=== PATIENT | male | born 1975 | race Caucasian/White ===

== ENCOUNTER 2017-06-24 18:51 | Inpatient (IN) | payer OTHER ==
[~2017-06-24] VITALS: Ht 182.9 cm; Wt 154.4 kg
[2017-06-24] MEDS ORDERED: NITROGLYCERIN OINT 1 GM PACKET. ONE (19:20)
[2017-06-24 19:30] LABS: BASO # 0.1 x10^3/uL (0.0-0.2); BASO % 1 % (0-3); EOS # 0.2 x10^3/uL (0.0-0.7); EOS % 2 % (0-3); HEMATOCRIT 43.8 % (39.0-53.0); HEMOGLOBIN 15.3 g/dL (13.0-17.5); LYMPH # 1.7 x10^3/uL (1.0-4.8); LYMPH % 16 % (24-48); MEAN CORPUSCULAR HEMOGLOBIN 31 pg (25-35); MEAN CORPUSCULAR HGB CONC 35 g/dL (31-37); MEAN CORPUSCULAR VOLUME 89 fL (79-100); MONO # 0.8 x10^3/uL (0.0-1.1); MONO % 8 % (0-9); NEUT # 7.8 x10^3uL (1.8-7.7); NEUT % 74 % (31-73); PLATELET COUNT 194 x10^3/uL (140-400); RED BLOOD COUNT 4.95 x10^6/uL (4.30-5.70); RED CELL DISTRIBUTION WIDTH 12.6 % (11.5-14.5); WHITE BLOOD COUNT 10.5 x10^3/uL (4.0-11.0)
[2017-06-24] MEDS ORDERED: LIDO:MAALOX 1:1 20 ML SINGLE DOSE PO ONE (19:30)
[2017-06-24 19:38] LABS: CALCIUM 9.2 mg/dL (8.5-10.1); CREATININE 1.1 mg/dL (0.7-1.3); GFR 72.7; POTASSIUM 4.6 mmol/L (3.5-5.1)
[2017-06-24] MEDS ORDERED: CONTRAST GIVEN MC PRN ×2 (19:45→22:15)
[2017-06-24] MEDS ORDERED: NITROGLYCERIN OINT 1 GM PACKET. TP ONE (20:00)
[2017-06-24] MEDS ORDERED: IOHEXOL 300 MG/ML 75 ML VIAL. IV ONE ×2 (20:00→22:30)
[2017-06-24] MEDS ORDERED: ASPIRIN 81 MG TAB.CHEW PO ONE (20:30)
--- NOTE | 2017-06-24 20:44 | PHYS DOC ---
Adult General Chief Complaint Chief Complaint: CHEST PAIN HPI HPI Patient is a 42-year-old male with no significant past medical history presents with complaints of substernal chest pain and epigastric pain that started when exerting himself. Patient felt nausea and got sweaty. No vomiting. No migrational pain. No trauma. No increased swelling or pain in his lower extremities. Review of Systems Review of Systems Constitutional: Denies fever or chills [] Eyes: Denies change in visual acuity, redness, or eye pain [] HENT: Denies nasal congestion or sore throat [] Respiratory: Denies cough or shortness of breath [] Cardiovascular: No additional information not addressed in HPI [] GI: As per history of present illness Musculoskeletal: Denies back pain or joint pain [] Integument: Denies rash or skin lesions [] Neurologic: Denies headache, focal weakness or sensory changes [] ] All other systems were reviewed and found to be within normal limits, except as documented in this note. Current Medications Current Medications Current Medications Medications (Trade) Dose Ordered Sig/Marci Start Time Stop Time Status Last Admin Dose Admin Aspirin (Children'S Aspirin) 324 mg 1X ONCE 06/24/17 20:30 06/24/17 20:31 DC Heparin Sodium (Porcine) (Heparin Sodium) 4,000 unit 1X ONCE 06/24/17 20:45 06/24/17 20:46 UNV Info (Do NOT chart on this entry -- for MONITORING) 1 each PRN DAILY PRN 06/24/17 19:45 06/26/17 19:44 Iohexol (Omnipaque 300 Mg/ml) 75 ml 1X ONCE 06/24/17 20:00 06/24/17 20:01 DC Multi-Ingredient Mouthwash/Gargle (Gi Cocktail) 20 ml 1X ONCE 06/24/17 19:30 06/24/17 19:31 DC 06/24/17 19:56 20 ML Nitroglycerin (Nitro-Bid Oint) 1 inch 1X ONCE 06/24/17 20:00 06/24/17 20:04 DC 06/24/17 19:30 1 INCH Allergies Allergies Allergies Coded Allergies Type Severity Reaction Last Updated Verified No Known Drug Allergies 06/24/17 No Physical Exam Physical Exam Constitutional: Well developed, well nourished, mild to moderate distress, non- toxic appearance. [] HENT: Normocephalic, atraumatic, bilateral external ears normal, oropharynx moist, no oral exudates, nose normal. No JVD Eyes: EOMI, conjunctiva normal, no discharge. [] Neck: Normal range of motion, no tenderness, supple, no stridor. JVD Cardiovascular:Heart rate regular rhythm, no murmur, equal pulses, normal perfusion Lungs & Thorax: Bilateral breath sounds clear to auscultation no tachypnea Abdomen: Bowel sounds normal, soft, no tenderness, no masses, no pulsatile masses. Old well-healed scar. No signs of hernia Skin: Warm, dry, no erythema, no rash. [] Back: No tenderness, no CVA tenderness. [] Extremities: No tenderness, no DVT, ROM intact, no edema. [] Neurologic: Alert and oriented X 3, normal motor function,, no focal deficits noted. [] Psychologic: Affect normal, judgement normal, mood normal. [] Current Patient Data Vital Signs Vital Signs Date Time Temp Pulse Resp B/P (MAP) Pulse Ox O2 Delivery O2 Flow Rate FiO2 06/24/17 19:30 87 178/139 Lab Results Laboratory Tests Test 06/24/17 19:13 06/24/17 19:40 White Blood Count 10.5 x10^3/uL (4.0-11.0) Red Blood Count 4.95 x10^6/uL (4.30-5.70) Hemoglobin 15.3 g/dL (13.0-17.5) Hematocrit 43.8 % (39.0-53.0) Mean Corpuscular Volume 89 fL (79-100) Mean Corpuscular Hemoglobin 31 pg (25-35) Mean Corpuscular Hemoglobin Concent 35 g/dL (31-37) Red Cell Distribution Width 12.6 % (11.5-14.5) Platelet Count 194 x10^3/uL (140-400) Neutrophils (%) (Auto) 74 % (31-73) H Lymphocytes (%) (Auto) 16 % (24-48) L Monocytes (%) (Auto) 8 % (0-9) Eosinophils (%) (Auto) 2 % (0-3) Basophils (%) (Auto) 1 % (0-3) Neutrophils # (Auto) 7.8 x10^3uL (1.8-7.7) H Lymphocytes # (Auto) 1.7 x10^3/uL (1.0-4.8) Monocytes # (Auto) 0.8 x10^3/uL (0.0-1.1) Eosinophils # (Auto) 0.2 x10^3/uL (0.0-0.7) Basophils # (Auto) 0.1 x10^3/uL (0.0-0.2) D-Dimer (Lindsay) 0.65 mg/L (0.00-0.50) H Sodium Level 140 mmol/L (136-145) Potassium Level 4.6 mmol/L (3.5-5.1) Chloride Level 103 mmol/L (98-107) Carbon Dioxide Level 26 mmol/L (21-32) Anion Gap 11 (6-14) Blood Urea Nitrogen 14 mg/dL (8-26) Creatinine 1.1 mg/dL (0.7-1.3) Estimated GFR (Cockcroft-Gault) 72.7 Glucose Level 152 mg/dL (70-99) H Calcium Level 9.2 mg/dL (8.5-10.1) Troponin I Quantitative 0.201 ng/mL (0-0.055) H EKG EKG 1854 sinus rhythm, 77, no STEMI 1946 right ear, sinus rhythm, no STEMI[] Radiology/Procedures Radiology/Procedures [] Course & Med Decision Making Course & Med Decision Making Pertinent Labs and Imaging studies reviewed. (See chart for details) [address] Randhawa, agrees patient is to be hospitalized, recommends continuing nitroglycerin as well as heparin protocol. No emergent need for Lab. Patient will be reevaluated in the morning likely receive a stress test initially 2100 patient is much more comfortable. Unremarkable vital signs. [] Dragon Disclaimer Dragon Disclaimer This electronic medical record was generated, in whole or in part, using a voice recognition dictation system. Departure Departure: Impression: Primary Impression: Chest pain Additional Impression: Elevated troponin Disposition: ADMITTED INPATIENT Admitting Physician: Purnima Cary Condition: STABLE Problem Qualifiers Laury MOONEY MD Jun 24, 2017 20:44
[2017-06-24] MEDS ORDERED: MORPHINE SULFATE 4 MG/ML DISP.SYRIN. IV ONE (21:00)
[2017-06-24] MEDS ORDERED: HEPARIN 25,000UTS/500ML PREMIX 500 ML IV PRN (21:00)
[2017-06-24] MEDS ORDERED: HEPARIN for IV BOLUS 10,000 UNIT/10 ML VIAL. IV ONE (21:00)
[2017-06-24] MEDS ORDERED: IV NORMAL SALINE 1,000ML 1,000 ML IV SCH (21:02)
[2017-06-24] MEDS ORDERED: MORPHINE SULFATE 2 MG/ML DISP.SYRIN. IV PRN (21:15)
[2017-06-24] MEDS ORDERED: ACETAMINOPHEN 325 MG TABLET PO PRN (21:15)
[2017-06-24] MEDS ORDERED: NITROGLYCERIN SUBLINGUAL 0.4 MG BOTTLE OF 25. SL PRN (21:15)
[2017-06-24] MEDS ORDERED: ONDANSETRON PF 4 MG/2 ML VIAL. IV PRN (21:15)
[2017-06-24 21:35] LABS: BARBITURATES NEG (NEG); BENZODIAZEPINES NEG (NEG); CANNABINOIDS NEG (NEG); COCAINE NEG (NEG); METHADONE NEG (NEG); OPIATES NEG (NEG); PHENCYCLIDINE NEG (NEG)
[2017-06-24 21:37] LABS: AMPHETAMINE/METHAMPHETAMINE NEG (NEG)
--- NOTE | 2017-06-24 21:53 | EKG ---
[address] [address] Test Date: 2017-06-24 Test Time: 19:46:43 Pat Name: KRYSTIN KELLEY Department: Room: Gender: M [employer] Escort: RADHA : 1975 Requested By: Laury MOONEY Order Number: [id number] Reading MD: Onesimo Plata MD Measurements Intervals [place] Rate: 80 P: 28 CA: 200 QRS: 2 QRSD: 82 T: 42 QT: 366 QTc: 426 Interpretive Statements SINUS RHYTHM QRS(T) CONTOUR ABNORMALITY CONSISTENT WITH SEPTAL INFARCT PROBABLY OLD Electronically Signed On 06-27-2017 12:43:23 VALVE REPAIRER by Onesimo Plata MD
--- NOTE | 2017-06-24 21:54 | EKG ---
[address] [address] Test Date: 2017-06-24 Test Time: 18:54:28 Pat Name: KRYSTIN KELLEY Department: Room: Gender: M Product Expert: RADHA : 1975 Requested By: Laury MOONEY Order Number: [id number] Reading MD: Onesimo Plata MD Measurements Intervals [place] Rate: 77 P: 38 RI: 204 QRS: -6 QRSD: 86 T: 25 QT: 382 QTc: 434 Interpretive Statements SINUS RHYTHM NON-SPECIFIC INFERIOR ST SEGMENT DEPRESSION PRIOR LAUREL-SEPTAL INFARCT Electronically Signed On 06-27-2017 12:42:13 TEST ENGINE OPERATOR by Onesimo Plata MD
[2017-06-24 22:45] VITALS: BP 135/90
--- NOTE | 2017-06-24 22:57 | RAD ---
CTA Chest with contrast: Clinical History: [id number] Omni 300 75cc: PE protocol: Chest pain, short of air, elevated d-dimer. No priors. Shortness of breath. Axial helical images of the chest were obtained after the administration of 75 cc of IV Omni 300 and timed appropriately for a pulmonary arterial study. Conventional axial reconstruction was performed in addition to coronal, sagittal and bilateral oblique MIP (maximum intensity projection). This study was ordered to detect possible pulmonary embolism. There are no filling defects to suggest pulmonary embolism. The lungs and pleural margins are clear. There is no mediastinal or hilar lymphadenopathy. The thoracic aorta appears normal. Impression: 1. No evidence of pulmonary embolism. 2. No significant findings. PQRS Compliance Statement: One or more of the following individualized dose reduction techniques were utilized for this examination: 1. Automated exposure control 2. Adjustment of the mA and/or kV according to patient size 3. Use of iterative reconstruction technique Electronically signed by: Memo Haque III, MD (06/24/2017 10:53 PM) [facility]
[2017-06-24 23:52] VITALS: BP 148/48
[2017-06-25 01:52] VITALS: BP 138/85
[2017-06-25 02:50] VITALS: BP_SYST 151; BP_SYST 158; BP_DIAS 89; BP_DIAS 92
[2017-06-25 03:04] LABS: HEMATOCRIT 41.3 % (39.0-53.0); HEMOGLOBIN 13.6 g/dL (13.0-17.5); MEAN CORPUSCULAR HEMOGLOBIN 30 pg (25-35); MEAN CORPUSCULAR HGB CONC 33 g/dL (31-37); MEAN CORPUSCULAR VOLUME 92 fL (79-100); PLATELET COUNT 176 x10^3/uL (140-400); RED BLOOD COUNT 4.48 x10^6/uL (4.30-5.70); RED CELL DISTRIBUTION WIDTH 12.2 % (11.5-14.5); WHITE BLOOD COUNT 8.6 x10^3/uL (4.0-11.0)
[2017-06-25] MEDS ORDERED: AMIODARONE 900 MG in IV DEXTROSE 5% 500 ML IV PRN ×2 (03:15→03:30)
[2017-06-25 03:23] LABS: % BANDS 2 % (0-9); % LYMPHS 14 % (24-48); % MONOS 3 % (0-10); % SEGS 81 % (35-66); PLT ESTIMATE ADEQUATE (ADEQUATE)
[2017-06-25] MEDS ORDERED: AMIODARONE 150 MG/3 ML VIAL IVP ONE ×2 (03:23→03:25)
[2017-06-25] MEDS ORDERED: AMIODARONE 150 MG in IV DEXTROSE 5% 100 ML IVP ONE (03:30)
[2017-06-25 03:44] VITALS: BP 138/90
[2017-06-25 03:55] LABS: ALBUMIN 3.5 g/dL (3.4-5.0); ALBUMIN/GLOBULIN RATIO 1.2 (1.0-1.7); CALCIUM 8.2 mg/dL (8.5-10.1); CREATININE 0.9 mg/dL (0.7-1.3); GFR 91.7; POTASSIUM 4.1 mmol/L (3.5-5.1); TOTAL BILIRUBIN 0.5 mg/dL (0.2-1.0); TOTAL PROTEIN 6.5 g/dL (6.4-8.2)
[2017-06-25 03:59] VITALS: BP 157/95
[2017-06-25 04:31] VITALS: BP 140/82
--- NOTE | 2017-06-25 08:56 | RAD ---
Indication: Severe chest pain and heaviness. Technique: Portable AP chest x-ray Comparison: None Findings: Heart is top normal in size. Lungs are clear. No pneumothorax or pleural effusion. Visualized bony thorax within normal limits. Impression: No acute cardiopulmonary process.
--- NOTE | 2017-06-25 23:42 | DS ---
DATE OF DISCHARGE: 06/25/2017 DISCHARGE/TRANSFER SUMMARY DISCHARGE DIAGNOSES: 1. Chest pain. 2. Elevated troponin. 3. Nonsustained ventricular tachycardia. 4. Apparent non-ST segment elevation myocardial infarction. Please note: This patient was not personally seen by myself as he was admitted late in the evening and then he was transferred in the middle of the night to [place]. He is a 42-year-old incarcerated prisoner in [place] who presented to the Emergency Room complaining of substernal pain and epigastric pain after exertion. During the workup, he was found to have an elevated troponin. The ER doctor reported his EKG is negative. The ER doctor consulted Dr. Dinh who agreed that he was stable to be admitted to [facility]. He was admitted and he had some nonsustained V-tach x 2 at approximately 3:20 and one prior to that. There were no beds at [facility] or elsewhere, apparently. He was transferred in stable condition to [facility] for higher level of care and suspect left heart catheterization. TYRA GUERRERO DO DR: DULCE/kateryna JOB#: [id number] / [id number]
== END 2017-06-25 05:15 | disposition short-term general hospital (02) | DRG 281 ==
LOC: ER 18:51 → EEVIPCON 22:04 → ICU 22:04
PROVIDERS: ADMIT Family Medicine; ATTEND Family Medicine
DX: I21.4 Non-ST elevation (NSTEMI) myocardial infarction (principal); I47.2 Ventricular tachycardia
CPT/HCPCS: 36415; 71045; 71275; 80048; 80053; 80307; 83735; 84484; 85007; 85025; 85379; 85610; 85730; 87641; 93005; 96365; 96376; J0282; J1644; J2405; Q9967; 99285-25; G0479; J7030